=== PATIENT | female | born 1945 | race Caucasian/White ===

== ENCOUNTER → 2023-08-19 10:58 | Outpatient (REF) | payer MEDICARE, SELFPAY | LOC: RCS 10:58 | PROVIDERS: ATTENDING PHYSICIAN Family Medicine | DX: I49.49 Other premature depolarization (principal) | CPT/HCPCS: 93005 ==

== ENCOUNTER → 2023-09-09 10:12 | Outpatient (REF) | payer MEDICARE, SELFPAY | LOC: RCS 10:12 | PROVIDERS: ATTENDING PHYSICIAN Internal Medicine Cardiovascular Disease; FAMILY PHYSICIAN Emergency Medicine | DX: R00.2 Palpitations (principal); R00.0 Tachycardia, unspecified | CPT/HCPCS: 93225; 93226 ==

== ENCOUNTER → 2023-10-27 14:23 | Outpatient (REF) | payer MEDICARE, SELFPAY | LOC: RAD 14:23 | PROVIDERS: ATTENDING PHYSICIAN Internal Medicine Cardiovascular Disease; FAMILY PHYSICIAN Emergency Medicine | DX: R00.0 Tachycardia, unspecified (principal); I77.9 Disorder of arteries and arterioles, unspecified; R00.2 Palpitations | CPT/HCPCS: 93880 ==

== ENCOUNTER → 2023-10-30 14:46 | Outpatient (REF) | payer MEDICARE, SELFPAY | LOC: HWRAD 14:46 | PROVIDERS: ATTENDING PHYSICIAN Internal Medicine; FAMILY PHYSICIAN Emergency Medicine | DX: M34.9 Systemic sclerosis, unspecified (principal); J84.9 Interstitial pulmonary disease, unspecified | CPT/HCPCS: 71250 ==

== ENCOUNTER → 2023-11-12 14:06 | Outpatient (REF) | payer MEDICARE, SELFPAY | LOC: HWRCS 14:06 | PROVIDERS: ATTENDING PHYSICIAN Internal Medicine; FAMILY PHYSICIAN Emergency Medicine | DX: M34.9 Systemic sclerosis, unspecified (principal); J84.9 Interstitial pulmonary disease, unspecified | CPT/HCPCS: 93306 ==

== ENCOUNTER → 2023-12-03 09:31 | Outpatient (REF) | payer MEDICARE, SELFPAY | LOC: HWRAD 09:31 | PROVIDERS: ATTENDING PHYSICIAN Emergency Medicine | DX: R10.84 Generalized abdominal pain (principal) | CPT/HCPCS: 74177; Q9967 ==

== ENCOUNTER → 2024-04-23 10:32 | Outpatient (REF) | payer MEDICARE, SELFPAY | LOC: HWWDC 10:32 | PROVIDERS: ATTENDING PHYSICIAN Emergency Medicine | DX: Z12.31 Encounter for screening mammogram for malignant neoplasm of breast (principal) | CPT/HCPCS: 77063; 77067 ==

== ENCOUNTER → 2024-06-16 13:58 | Outpatient (REF) | payer MEDICARE, SELFPAY | LOC: HWRAD 13:58 | PROVIDERS: ATTENDING PHYSICIAN Internal Medicine; FAMILY PHYSICIAN Emergency Medicine | DX: M25.50 Pain in unspecified joint (principal) | CPT/HCPCS: 73630 ==

== ENCOUNTER 2024-08-17 06:23 | Day surgery (SDC) | payer MEDICARE, SELFPAY | END 2024-08-17 12:01 | disposition home or self-care (01) | LOC: GI 06:23 | PROVIDERS: ATTENDING PHYSICIAN Internal Medicine | DX: Z12.11 Encounter for screening for malignant neoplasm of colon (principal); K64.8 Other hemorrhoids; K57.30 Diverticulosis of large intestine without perforation or abscess without bleeding; K58.9 Irritable bowel syndrome, unspecified; D12.2 Benign neoplasm of ascending colon; K62.1 Rectal polyp; K44.9 Diaphragmatic hernia without obstruction or gangrene; K31.7 Polyp of stomach and duodenum; K22.2 Esophageal obstruction; K31.89 Other diseases of stomach and duodenum; Z15.09 Genetic susceptibility to other malignant neoplasm; Z86.0100 Personal history of colon polyps, unspecified | CPT/HCPCS: 43251; 45380; 88305; 88342 ==

== ENCOUNTER → 2024-09-28 09:52 | Outpatient (REF) | payer MEDICARE, SELFPAY | LOC: RST 09:52 | PROVIDERS: ATTENDING PHYSICIAN Emergency Medicine | DX: R13.19 Other dysphagia (principal) | CPT/HCPCS: 74230; 92611 ==

== ENCOUNTER → 2024-10-29 09:40 | Outpatient (REF) | payer MEDICARE, SELFPAY | LOC: WDC 09:40 | PROVIDERS: ATTENDING PHYSICIAN Emergency Medicine | DX: R92.30 Dense breasts, unspecified (principal) | CPT/HCPCS: 76641 ==

== ENCOUNTER → 2024-12-01 13:36 | Outpatient (REF) | payer MEDICARE, SELFPAY | LOC: HWRAD 13:36 | PROVIDERS: ATTENDING PHYSICIAN Internal Medicine; FAMILY PHYSICIAN Emergency Medicine; REFERRING PHYSICIAN Internal Medicine Critical Care Medicine | DX: J84.9 Interstitial pulmonary disease, unspecified (principal); M34.9 Systemic sclerosis, unspecified | CPT/HCPCS: 71250 ==

== ENCOUNTER → 2025-01-01 09:44 | Outpatient (REF) | payer MEDICARE, SELFPAY | LOC: PAVMRI 09:44 | PROVIDERS: ATTENDING PHYSICIAN Specialist; FAMILY PHYSICIAN Emergency Medicine | DX: M54.16 Radiculopathy, lumbar region (principal) | CPT/HCPCS: 72148 ==

== ENCOUNTER → 2025-01-13 13:38 | Outpatient (REF) | payer MEDICARE, SELFPAY | LOC: EMG 13:38 | PROVIDERS: ATTENDING PHYSICIAN Specialist; FAMILY PHYSICIAN Emergency Medicine | DX: M54.16 Radiculopathy, lumbar region (principal); R20.0 Anesthesia of skin | CPT/HCPCS: 95886; 95911 ==

== ENCOUNTER → 2025-05-19 14:37 | Outpatient (REF) | payer MEDICARE, SELFPAY | LOC: HWWDC 14:37 | PROVIDERS: ATTENDING PHYSICIAN Emergency Medicine | DX: Z12.31 Encounter for screening mammogram for malignant neoplasm of breast (principal); Z85.3 Personal history of malignant neoplasm of breast | CPT/HCPCS: 77063; 77067 ==